=== PATIENT | male | born 1930 | race Caucasian/White ===

== ENCOUNTER 2017-03-20 12:07 | Emergency (ER) | payer OTHER ==
--- NOTE | 2017-03-20 12:13 | EDPHY ---
H & P HPI/ROS: CHIEF COMPLAINT: Dyspnea, Chest pain HISTORY OF PRESENT ILLNESS: The patient is an 86-year-old male brought in by EMS after sudden onset of chest pain. Staff at patient's living facility noticed the patient appeared short of breath and was complaining of chest pain. Patient states he usually develops dyspnea with slight exertion such as walking. His chest pain has now resolved. Patient has a pacemaker and is anticoagulated. Patient has DNR. BP during transport was 166/74. BGL 216. History is limited, patient is unable to provide any clinical history due to dementia. REVIEW OF SYSTEMS: Limited due to patient's dementia. Past Medical/Surgical History: CAD, Dementia, HTN, Pacemaker, HLD, DM2, CHF Social History: Resides at assisted living facility. Has DNR. Physical Exam: General Appearance: Alert, pleasant Eyes: Pupils equal and round, no conjunctival pallor or injection ENT, Mouth: Mucous membranes moist Neck: Normal inspection Respiratory: Lungs are clear to auscultation Cardiovascular: Regular rate and rhythm Gastrointestinal: Abdomen is soft and non-tender Neurological: A&O, nonfocal, normal gait Skin: Warm and dry, no rash Extremities: Nontender, 2+ bilateral pedal edema Psychiatric: Mood and affect normal Constitutional: Initial Vital Signs O2 Sat (%) 97 03/20/17 12:15 O2 Delivery Mode Room Air O2 (L/minute) 2 Allergies/Adverse Reactions: No Known Allergies Allergy (Unverified 12/14/15 08:21) Home Medications: Medication Instructions Recorded Cholecalciferol (Vitamin D3) 2,000 unit PO DAILY 12/14/15 [Vitamin D3] Warfarin Sodium [Coumadin 2MG (*)] 2 mg PO SUTUTHSA@1600 12/14/15 Warfarin Sodium [Coumadin 4MG (*)] 4 mg PO MOWEFR@1600 12/14/15 Acetaminophen [Tylenol 325mg (*)] 650 mg PO Q6 PRN 08/11/16 Carvedilol [Coreg (*)] 25 mg PO BIDMEAL 08/11/16 Aspirin [Aspirin 81mg (*)] 81 mg PO DAILY #0 tab.chew 08/16/16 Atorvastatin Calcium [Lipitor 40 40 mg PO DAILY #30 tab 08/16/16 mg (*)] Clopidogrel Bisulfate [Plavix (*)] 75 mg PO DAILY #30 tab 08/16/16 Insulin NPH Human [humULIN N 100 6 units SC BIDAC #60 dose 08/16/16 UNITS/ML (*)] Losartan Potassium [Cozaar 50 mg 50 mg PO DAILY #30 tab 08/16/16 (*)] Medical Decision Making - Diagnostics EKG Interpretation: The 12 lead EKG was interpreted by myself. See hard copy and/or "tracemaster" electronic copy for interpretation: Atrial-paced rhythm. LBBB. Imaging: Discussed imaging studies w/ etl data architect Radiologist ED Course/Re-evaluation: Patient with history of HTN, CHF, and CAD arrived to the ED after sudden onset of chest pain. According to staff at patient's living facility patient complained of chest pain and dyspnea. He is asymptomatic now. On exam patent has 2+ bilateral pedal edema. Plan for cardiac workup including EKG, chest x-ray , labs, and troponin. Chest x-ray reviewed by me reveals no acute disease. BUN and BNP are elevated. Patient has DNR. Patient and son declined admission. The pt's son clearly understands the risks and benefits of this decision. Pt concurs. They understand that the risks include disability, dysrhythmia and . Patient will followup with Dr. Michelle in his office. Differential Diagnosis: Differential diagnosis includes though it is not limited to pneumonia, pneumothorax, pulmonary embolism, aortic dissection, pericarditis, acute coronary syndrome. - Data Points Laboratory Results: Laboratory Results 03/20/17 12:15 03/20/17 12:15 Departure - Departure Disposition: Home, Routine, Self-Care Clinical Impression: Chest pain Qualifiers: Chest pain type: precordial pain Qualified Code(s): R07.2 - Precordial pain Condition: Good Instructions: Chest Pain (ED) Additional Instructions: Please followup with Dr. Michelle, Cardiology, in his office. Return to the Emergency Department with new or worsening symptoms. Referrals: King Mcgovern MD [Primary Care Provider] - As per Instructions Michael Michelle MD [Medical Doctor] - As per Instructions Report Scribed for: Rama Webb Report Scribed by: Kalie Bloom Date of Report: 03/20/17 Time of Report: 12:15 Physician Review and Approval Statement: 03/20/17 12:15 Portions of this note were transcribed by a front office medical assistant. I personally performed the history, physical exam, and medical decision-making; and confirmed the accuracy of the information in the transcribed note.
--- NOTE | 2017-03-20 12:20 | CPEKG ---
Heart Rate: 60 RR Interval: 1000 P-R Interval: 212 QRSD Interval: 188 QT Interval: 472 QTC Interval: 472 QRS [place]: -46 T Wave [place]: 135 EKG Severity - ABNORMAL ECG - EKG Impression: ATRIAL-PACED RHYTHM EKG Impression: LEFT BUNDLE BRANCH BLOCK Electronically Signed By: Rama Webb 20-Mar-2017 14:48:02
[2017-03-20 12:31] VITALS: RESP 16
[2017-03-20 12:31] LABS: % IMMATURE GRANULYOCYTES 0.3 % (0.0-1.1); ABSOLUTE IMMATURE GRANULOCYTES 0.02 10^3/uL (0.00-0.10); ADD DIFF? NO; ADD MORPH? NO; ADD SCAN? NO; ATYPICAL LYMPHOCYTE FLAG 20 (0-99); FRAGMENT RBC FLAG 0 (0-99); HEMATOCRIT 40.8 % (40.0-51.0); HEMOGLOBIN 13.6 g/dL (13.7-17.5); LEFT SHIFT FLG 10 (0-99); LIPEMIA HEMOLYSIS FLAG 80 (0-99); MEAN CELL HEMOGLOBIN 31.8 pg (27.9-34.1); MEAN CELL HEMOGLOBIN CONCENTR. 33.3 g/dL (32.4-36.7); MEAN CELL VOLUME 95.3 fL (81.5-99.8); MEAN PLATELET VOLUME 11.5 fL (8.7-11.7); PLATELET CLUMPS FLAG 20 (0-99); PLATELET COUNT 131 10^3/uL (150-400); RED BLOOD CELL COUNT 4.28 10^6/uL (4.40-6.38); RED CELL DISTRIBUTION WIDTH 13.2 % (11.5-15.2)
[2017-03-20 12:41] LABS: ANION GAP 9 mEq/L (8-16); CALCIUM 9.3 mg/dL (8.5-10.4); CARBON DIOXIDE 21 mEq/l (22-31); CHLORIDE 111 mEq/L (97-110); CREATININE 1.7 mg/dL (0.7-1.3); GLOMERULAR FILTRATION RATE 38; GLUCOSE 202 mg/dL (70-100); POTASSIUM 4.2 mEq/L (3.5-5.2); SODIUM 141 mEq/L (134-144)
[2017-03-20 12:53] LABS: TROPONIN I < 0.012 ng/mL (0-0.034)
[2017-03-20 14:27] LABS: INR 3.25 (0.83-1.16); PROTIME(PATIENT) 33.6 SEC (12.0-15.0)
[2017-03-20 14:34] VITALS: BP 149/81; PULSE 69; TEMP 98.1; O2SAT 95
== END 2017-03-20 14:31 | disposition home or self-care (01) ==
LOC: EDUNIT#
DX: R07.2 Precordial pain (principal); I11.0 Hypertensive heart disease with heart failure; I50.9 Heart failure, unspecified; E11.9 Type 2 diabetes mellitus without complications; I25.10 Atherosclerotic heart disease of native coronary artery without angina pectoris; Z95.0 Presence of cardiac pacemaker; Z79.01 Long term (current) use of anticoagulants; Z79.82 Long term (current) use of aspirin; Z79.4 Long term (current) use of insulin